=== PATIENT | female | born 1980 | race Caucasian/White ===

== ENCOUNTER 2017-12-16 12:44 | Emergency (ER) | payer BC, OTHER, SELFPAY ==
[2017-12-16 13:06] VITALS: BP 113/61; PULSE 82; RESP 20; TEMP 36.7; O2SAT 98; BMI 18.2
--- NOTE | 2017-12-16 13:07 | ED.EXTPRO ---
HPI - Extremity Problem <PEPITO Weiss - Last Filed: 12/16/17 20:21> General Chief complaint: Extremity Problem,Nontraumatic Stated complaint: I have a cyst in my left leg Time Seen by Provider: 12/16/17 13:07 Source: patient Mode of arrival: ambulatory Limitations: no limitations History of Present Illness HPI Narrative: 37-year-old female with history of endometriosis and is an every day smoker here for complaint of having cyst to her left thigh over the past couple of months. She states she has a firm lump to her left inner thigh she states that is nonpainful. She denies any trauma to the area. She was seen by her primary care provider for this a week and a half ago and had full lab workup she states was normal. She was waiting to get an ultrasound completed to this area for further evaluation she states that this has not happened as of yet. She states she is here as it seems as though the cyst has enlarged somewhat and request ultrasound. She denies any fevers or chills. She denies any other concerns or complaints at this time. She is ambulatory into the emergency room. Complaint: extremity swelling Related Data Home Medications Medication Instructions Recorded Confirmed No Known Home Medications 12/16/17 12/16/17 Allergies Allergy/AdvReac Type Severity Reaction Status Date / Time Sulfa (Sulfonamide Allergy Mild Verified 12/16/17 13:12 Antibiotics) [SULFA (SULFONAMIDE ANTIBIOTICS)] pseudoephedrine AdvReac Mild Verified 12/16/17 13:12 [From [facility]] Review of Systems <PEPITO Weiss - Last Filed: 12/16/17 20:21> Constitutional Denies chills, Denies fever(s), Denies lethargy and Denies weakness Eyes Denies change in vision, Denies eye discharge, Denies irritation and Denies loss of vision ENT Ears, Nose, Mouth, and Throat: Denies change in voice, Denies neck pain and Denies sore throat Cardiovascular Denies chest pain, Denies irregular heart rhythm, Denies lightheadedness, Denies palpitations, Denies dyspnea, Denies dyspnea on exertion and Denies orthopnea Respiratory Denies cough, Denies dyspnea, Denies dyspnea on exertion and Denies wheezing Genitourinary Denies hematuria, Denies flank pain, Denies urinary incontinence and Denies urinary urgency Musculoskeletal Denies neck pain Comments: Enlarged cyst to left thigh Integumentary/Breasts Denies pruritus, Denies erythema, Denies rash and Denies wounds Neurologic Denies confusion, Denies loss of vision and Denies weakness Psychiatric Denies anxiety, Denies confusion, Denies depression, Denies homicidal ideation and Denies suicidal ideation Endocrine Denies palpitations Hematologic/Lymphatic Denies easy bruising Allergic/Immunologic Denies wheezing Exam <PEPITO Weiss - Last Filed: 12/16/17 20:21> Initial Vital Signs Initial Vital Signs: Vital Signs Temperature 98.0 F 12/16/17 13:06 Pulse Rate 82 12/16/17 13:06 Respiratory Rate 20 12/16/17 13:06 Blood Pressure 113/61 12/16/17 13:06 Pulse Oximetry 98 12/16/17 13:06 HENMT Mouth: oral mucosae normal and moist mucous membranes Eyes Conjunctivae: conjunctivae normal Sclera: sclerae normal Pupils: PERRL EOM: EOM intact bilaterally Resp Effort & Inspection: normal respiratory effort, able to speak in complete sentences, no respiratory distress and no use of accessory muscles Auscultation: clear to auscultation bilaterally, no rales, no rhonchi and no wheezes Cardio Rate: regular rate Rhythm: regular rhythm Heart Sounds: no click, no gallops, no murmurs and no rubs Skin General: no rashes or lesions noted, No jaundice and No petechiae Neuro General: alert, oriented x3, gait normal and no focal motor deficits Speech: speech normal Extrem Other: Approximately 3.5 cm nodule to left proximal medial thigh. No signs of trauma. No erythema. No tenderness. Distal sensation is intact. Distal pulses are intact. Distal range of motion is intact. <Lilibeth Huntley DO - Last Filed: 12/20/17 12:18> Initial Vital Signs Initial Vital Signs: Vital Signs Temperature 98.0 F 12/16/17 13:06 Pulse Rate 82 12/16/17 13:06 Respiratory Rate 20 12/16/17 13:06 Blood Pressure 113/61 12/16/17 13:06 Pulse Oximetry 98 12/16/17 13:06 Course <PEPITO Weiss - Last Filed: 12/16/17 20:21> Orders Ordered: ED Orders 12/16/17 13:20 US extremity nonvasc lower lt Stat Vital Signs - 8 hr 12/16/17 13:06 Temperature 98.0 F Pulse Rate 82 Respiratory Rate 20 Blood Pressure 113/61 Pulse Oximetry 98 <Lilibeth Martin MarioannetteDO - Last Filed: 12/20/17 12:18> Orders Ordered: ED Orders 12/16/17 13:20 US extremity nonvasc lower lt Stat Vital Signs - 8 hr 12/16/17 13:06 Temperature 98.0 F Pulse Rate 82 Respiratory Rate 20 Blood Pressure 113/61 Pulse Oximetry 98 MDM - Extremity (Nontraumatic) <PEPITO Weiss - Last Filed: 12/16/17 20:21> Imaging Data Extremity ultrasound: Radiologist's impression: [address] [address] Ultrasound Report Signed Patient: Lilibeth Clemente MR#: [id number] : 1980 Acct:[id number] Age/Sex: 37 / F Date of Service: 12/16/17 Loc: ED Accession Number: [id number] Procedure: US extremity nonvasc lower lt Ordering Provider: Carlos Bermudez PROCEDURE: US PERIPH VENOUS LOW EXTREM RT INDICATIONS: Lump to the left inner thigh TECHNIQUE: Real-time imaging, as well as color and pulse Doppler interrogation, were performed of the lower extremity deep veins from the inguinal ligament to the popliteal fossa. COMPARISON: None. FINDINGS: The deep veins were not assessed and cannot be evaluated. There is a 4.4 x 2.5 x 2.8 cm hypervascular lesion in the left thigh that corresponds to the reported clinically palpable mass. IMPRESSION: Hypervascular mass corresponds to clinically palpable lesion in the left thigh. Finding is nonspecific imaging characteristics may represent enlarged lymph node related to infection or metastatic disease or primary neoplastic process. Decision to biopsy should be based on clinical assessment. Dictated by: Julia Girard MD, PhD on 12/16/2017 at 15:10 Approved by: Julia Girard MD, PhD on 12/16/2017 at 15:12 [facility] Narrative Medical decision making narrative: Ultrasound of the nodule to the left inner thigh was obtained. Radiological results point to either enlarged lymph node or a neoplastic disease. She is referred to her primary care provider for further evaluation and discussion of referral for biopsy. Return emergency room for any worsening symptoms. Discharge Plan Departure Patient Disposition: Home Clinical Impression: Enlarged lymph node Discharge Date/Time: 12/16/17 15:37 Interventions: ED Discharge Assessment Last Done: 12/16/17 15:37 Instructions: DI for Lymphadenopathy Activity Restrictions/Additional Instructions: Ultrasound of the nodule to your left thigh shows either a enlarged lymph node or a vascular growth. Recommend following up with primary care provider for further evaluation and discussion of biopsy. For any worsening symptoms return to the emergency room. Prescriptions: No Action No Known Home Medications RF: 0 Referrals: Antoni Kirkpatrick MD [Primary Care Provider] - <Lilibeth Huntley DO - Last Filed: 12/20/17 12:18> Cosign ED Attending Cosignature Attestation: I was immediately available in the department for consultation. This documentation has been reviewed and I agree with assessment and plan. Supervised by Lilibeth Huntley DO
--- NOTE | 2017-12-16 13:20 | DI.US.S_ITS ---
PROCEDURE: US PERIPH VENOUS LOW EXTREM RT INDICATIONS: Lump to the left inner thigh TECHNIQUE: Real-time imaging, as well as color and pulse Doppler interrogation, were performed of the lower extremity deep veins from the inguinal ligament to the popliteal fossa. COMPARISON: None. FINDINGS: The deep veins were not assessed and cannot be evaluated. There is a 4.4 x 2.5 x 2.8 cm hypervascular lesion in the left thigh that corresponds to the reported clinically palpable mass. IMPRESSION: Hypervascular mass corresponds to clinically palpable lesion in the left thigh. Finding is nonspecific imaging characteristics may represent enlarged lymph node related to infection or metastatic disease or primary neoplastic process. Decision to biopsy should be based on clinical assessment. Dictated by: Julia Girard MD, PhD on 12/16/2017 at 15:10 Approved by: Julia Girard MD, PhD on 12/16/2017 at 15:12
--- NOTE | 2017-12-16 14:27 | PC.NURSE ---
LArge 8cm by 8cm lump on pts medial upper thigh
--- NOTE | 2017-12-16 15:25 | ED_ITS ---
HPI - Extremity Problem <PEPITO Weiss - Last Filed: 12/16/17 20:21> General Chief complaint: Extremity Problem,Nontraumatic Stated complaint: I have a cyst in my left leg Time Seen by Provider: 12/16/17 13:07 Source: patient Mode of arrival: ambulatory Limitations: no limitations History of Present Illness HPI Narrative: 37-year-old female with history of endometriosis and is an every day smoker here for complaint of having cyst to her left thigh over the past couple of months. She states she has a firm lump to her left inner thigh she states that is nonpainful. She denies any trauma to the area. She was seen by her primary care provider for this a week and a half ago and had full lab workup she states was normal. She was waiting to get an ultrasound completed to this area for further evaluation she states that this has not happened as of yet. She states she is here as it seems as though the cyst has enlarged somewhat and request ultrasound. She denies any fevers or chills. She denies any other concerns or complaints at this time. She is ambulatory into the emergency room. Complaint: extremity swelling Related Data Home Medications Medication Instructions Recorded Confirmed No Known Home Medications 12/16/17 12/16/17 Allergies Allergy/AdvReac Type Severity Reaction Status Date / Time Sulfa (Sulfonamide Allergy Mild Verified 12/16/17 13:12 Antibiotics) [SULFA (SULFONAMIDE ANTIBIOTICS)] pseudoephedrine AdvReac Mild Verified 12/16/17 13:12 [From [facility]] Review of Systems <PEPITO Weiss - Last Filed: 12/16/17 20:21> Constitutional Denies chills, Denies fever(s), Denies lethargy and Denies weakness Eyes Denies change in vision, Denies eye discharge, Denies irritation and Denies loss of vision ENT Ears, Nose, Mouth, and Throat: Denies change in voice, Denies neck pain and Denies sore throat Cardiovascular Denies chest pain, Denies irregular heart rhythm, Denies lightheadedness, Denies palpitations, Denies dyspnea, Denies dyspnea on exertion and Denies orthopnea Respiratory Denies cough, Denies dyspnea, Denies dyspnea on exertion and Denies wheezing Genitourinary Denies hematuria, Denies flank pain, Denies urinary incontinence and Denies urinary urgency Musculoskeletal Denies neck pain Comments: Enlarged cyst to left thigh Integumentary/Breasts Denies pruritus, Denies erythema, Denies rash and Denies wounds Neurologic Denies confusion, Denies loss of vision and Denies weakness Psychiatric Denies anxiety, Denies confusion, Denies depression, Denies homicidal ideation and Denies suicidal ideation Endocrine Denies palpitations Hematologic/Lymphatic Denies easy bruising Allergic/Immunologic Denies wheezing Exam <PEPITO Weiss - Last Filed: 12/16/17 20:21> Initial Vital Signs Initial Vital Signs: Vital Signs Temperature 98.0 F 12/16/17 13:06 Pulse Rate 82 12/16/17 13:06 Respiratory Rate 20 12/16/17 13:06 Blood Pressure 113/61 12/16/17 13:06 Pulse Oximetry 98 12/16/17 13:06 HENMT Mouth: oral mucosae normal and moist mucous membranes Eyes Conjunctivae: conjunctivae normal Sclera: sclerae normal Pupils: PERRL EOM: EOM intact bilaterally Resp Effort & Inspection: normal respiratory effort, able to speak in complete sentences, no respiratory distress and no use of accessory muscles Auscultation: clear to auscultation bilaterally, no rales, no rhonchi and no wheezes Cardio Rate: regular rate Rhythm: regular rhythm Heart Sounds: no click, no gallops, no murmurs and no rubs Skin General: no rashes or lesions noted, No jaundice and No petechiae Neuro General: alert, oriented x3, gait normal and no focal motor deficits Speech: speech normal Extrem Other: Approximately 3.5 cm nodule to left proximal medial thigh. No signs of trauma. No erythema. No tenderness. Distal sensation is intact. Distal pulses are intact. Distal range of motion is intact. <Lilibeth Huntley DO - Last Filed: 12/20/17 12:18> Initial Vital Signs Initial Vital Signs: Vital Signs Temperature 98.0 F 12/16/17 13:06 Pulse Rate 82 12/16/17 13:06 Respiratory Rate 20 12/16/17 13:06 Blood Pressure 113/61 12/16/17 13:06 Pulse Oximetry 98 12/16/17 13:06 Course <PEPITO Weiss - Last Filed: 12/16/17 20:21> Orders Ordered: ED Orders 12/16/17 13:20 US extremity nonvasc lower lt Stat Vital Signs - 8 hr 12/16/17 13:06 Temperature 98.0 F Pulse Rate 82 Respiratory Rate 20 Blood Pressure 113/61 Pulse Oximetry 98 <Lilibeth Martin MarioannetteDO - Last Filed: 12/20/17 12:18> Orders Ordered: ED Orders 12/16/17 13:20 US extremity nonvasc lower lt Stat Vital Signs - 8 hr 12/16/17 13:06 Temperature 98.0 F Pulse Rate 82 Respiratory Rate 20 Blood Pressure 113/61 Pulse Oximetry 98 MDM - Extremity (Nontraumatic) <PEPITO Weiss - Last Filed: 12/16/17 20:21> Imaging Data Extremity ultrasound: Radiologist's impression: [address] [address] Ultrasound Report Signed Patient: Lilibeth Clemente MR#: [id number] : 1980 Acct:[id number] Age/Sex: 37 / F Date of Service: 12/16/17 Loc: ED Accession Number: [id number] Procedure: US extremity nonvasc lower lt Ordering Provider: Carlos Bermudez PROCEDURE: US PERIPH VENOUS LOW EXTREM RT INDICATIONS: Lump to the left inner thigh TECHNIQUE: Real-time imaging, as well as color and pulse Doppler interrogation, were performed of the lower extremity deep veins from the inguinal ligament to the popliteal fossa. COMPARISON: None. FINDINGS: The deep veins were not assessed and cannot be evaluated. There is a 4.4 x 2.5 x 2.8 cm hypervascular lesion in the left thigh that corresponds to the reported clinically palpable mass. IMPRESSION: Hypervascular mass corresponds to clinically palpable lesion in the left thigh. Finding is nonspecific imaging characteristics may represent enlarged lymph node related to infection or metastatic disease or primary neoplastic process. Decision to biopsy should be based on clinical assessment. Dictated by: Julia Girard MD, PhD on 12/16/2017 at 15:10 Approved by: Julia Girard MD, PhD on 12/16/2017 at 15:12 [facility] Narrative Medical decision making narrative: Ultrasound of the nodule to the left inner thigh was obtained. Radiological results point to either enlarged lymph node or a neoplastic disease. She is referred to her primary care provider for further evaluation and discussion of referral for biopsy. Return emergency room for any worsening symptoms. Discharge Plan Departure Patient Disposition: Home Clinical Impression: Enlarged lymph node Discharge Date/Time: 12/16/17 15:37 Interventions: ED Discharge Assessment Last Done: 12/16/17 15:37 Instructions: DI for Lymphadenopathy Activity Restrictions/Additional Instructions: Ultrasound of the nodule to your left thigh shows either a enlarged lymph node or a vascular growth. Recommend following up with primary care provider for further evaluation and discussion of biopsy. For any worsening symptoms return to the emergency room. Prescriptions: No Action No Known Home Medications RF: 0 Referrals: Antoni Kirkpatrick MD [Primary Care Provider] - <Lilibeth Huntley DO - Last Filed: 12/20/17 12:18> Cosign ED Attending Cosignature Attestation: I was immediately available in the department for consultation. This documentation has been reviewed and I agree with assessment and plan. Supervised by Lilibeth Huntley DO
== END 2017-12-16 15:37 | disposition home or self-care (01) ==
PROVIDERS: Emergency Provider Nurse Practitioner Family; PCP Family Medicine
DX: R59.9 Enlarged lymph nodes, unspecified (principal)
CPT/HCPCS: 76882; 99282; 99283